=== PATIENT | female | born 1965 | race Caucasian/White ===

== ENCOUNTER → 2017-08-06 09:43 | Outpatient (CLI) | payer BC, SELFPAY ==
--- NOTE | 2017-08-06 09:46 | MM_ITS ---
MM Dig screening mamm BI w/CAD CAD Screening ORDERING PHYSICIAN : Rob Fagan MD PATIENT AGE: 52 years GENDER: Female COMPARISON: Only: June 2009 film screen exam. Available and spot diagnostic study from July 2009 INDICATION: Routine screening. No hormones no new complaints noncontributory family history TECHNIQUE: Standard CC and MLO images were obtained. R2 CAD reviewed. FINDINGS: Mild to moderate breast density with scattered fibroglandular elements. No dominant mass nor suspicious calcifications. No significant new findings. CAD computer review highlights no areas of concern either. RIGHT BREAST: Minor nodularity at far lateral right breast of less evident today than 2010. Mild asymmetry is stable. LEFT BREAST:No new areas of concern IMPRESSION: ...... No areas of concern . Follow-up in one year recommended Stable bilateral mammogram with no significant new findings BI-RADS Category: 2 Benign Finding(s) RECOMMENDED FOLLOW-UP: 1YR - 1 YEAR FOLLOW-UP (A letter has been sent to the patient regarding results of the study.)
== END ==
PROVIDERS: PCP Family Medicine; Visit Provider Nurse Practitioner Obstetrics & Gynecology
DX: Z12.31 Encounter for screening mammogram for malignant neoplasm of breast (principal)
CPT/HCPCS: 77067